=== PATIENT | male | born 1980 ===

== ENCOUNTER 2019-03-07 13:48 | Emergency (ER) | payer OTHER ==
[2019-03-07 14:08] VITALS: BP 158/95; PULSE 88; RESP 18; TEMP 98.1; O2SAT 100
--- NOTE | 2019-03-07 15:25 | RAD ---
Date of service: 03/07/2019 PROCEDURE: Right Foot Radiographs. HISTORY: r/o fx COMPARISON: None. TECHNIQUE: 3 views obtained. FINDINGS: BONES: Bone alignment and mineralization are normal. There is no acute displaced fracture or bone destruction. The 4th metatarsal is short, an anatomic variant. JOINTS: Normal. SOFT TISSUES: Normal. OTHER FINDINGS: None. IMPRESSION: No acute displaced fracture or dislocation.
--- NOTE | 2019-03-07 19:03 | C.PDOC ---
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 Patient reports that he was wearing construction boots at the time. He notes that he is able to ambulate with limp. Denies having weakness and numbness. Chief Complaint (Nursing): Trauma History Per: Patient History/Exam Limitations: no limitations Onset/Duration Of Symptoms: Hrs Current Symptoms Are (Timing): Still Present Severity: Moderate Past Medical History Reviewed: Historical Data, Nursing Documentation, Vital Signs Vital Signs: Last Vital Signs Temp 98.1 F 03/07/19 14:05 Pulse 88 03/07/19 14:05 Resp 18 03/07/19 14:05 BP 158/95 H 03/07/19 14:05 Pulse Ox 100 03/07/19 14:05 - Medical History PMH: No Chronic Diseases Surgical History: No Surg Hx Family History: States: No Known Family Hx - Social History Hx Alcohol Use: Yes Hx Substance Use: No - Immunization History Hx Tetanus Toxoid Vaccination: Yes Hx Influenza Vaccination: No Hx Pneumococcal Vaccination: No Review Of Systems Musculoskeletal: Positive for: Foot Pain (right foot pain) Neurological: Negative for: Weakness, Numbness Physical Exam - Physical Exam Appears: Non-toxic, No Acute Distress Skin: Normal Color, Warm, Dry Head: Atraumatic, Normacephalic Eye(s): bilateral: Normal Inspection Nose: Normal Oral Mucosa: Moist Neck: Supple Chest: Symmetrical Extremity: Normal ROM, Tenderness (tenderness to dorsal aspect of right foot), Capillary Refill (< 2 seconds), Swelling (swelling to dorsal aspect of right foot) Pulses: Left Dorsalis Pedis: Normal, Right Dorsalis Pedis: Normal Neurological/Psych: Oriented x3, Normal Speech, Normal Motor, Normal Sensation ED Course And Treatment O2 Sat by Pulse Oximetry: 100 (RA) Pulse Ox Interpretation: Normal - Other Rad X-Ray-Foot X-Ray: Viewed By Me, Read By Radiologist Interpretation: Date of service: 03/07/2019. PROCEDURE: Right Foot Radiographs. HISTORY: r/o fx. COMPARISON: None. TECHNIQUE: 3 views obtained. FINDINGS: BONES: Bone alignment and mineralization are normal. There is no acute displaced fracture or bone destruction. The 4th metatarsal is short, an anatomic variant. JOINTS: Normal. SOFT TISSUES: Normal. OTHER FINDINGS: None. IMPRESSION: No acute displaced fracture or dislocation. Medical Decision Making Medical Decision Making: Plan: --Tylenol PO --X-Ray-Right Foot Disposition - Disposition Referrals: Hilton Camacho [facility], [Non-Staff] - Disposition: HOME/ ROUTINE Disposition Time: 15:15 Condition: GOOD Additional Instructions: GAVIN MENEZES, thank you for letting us take care of you today. The emergency medical care you received today was directed at your acute symptoms. If you were prescribed any medication, please fill it and take as directed. It may take several days for your symptoms to resolve. Return to the Emergency Department if your symptoms worsen, do not improve, or if you have any other problems. Please contact your doctor or call one of the physicians/clinics you have been referred to that are listed on the Patient Visit Information form that is included in your discharge packet. Bring any paperwork you were given at discharge with you along with any medications you are taking to your follow up visit. Our treatment cannot replace ongoing medical care by a primary care provider outside of the emergency department. Thank you for allowing the [facility] team to be part of your care today. Follow up with your primary care doctor this week for re-evaluation and further management. GAVIN MENEZES, sarah por dejarnos cuidar de usted radha. La atencin mdica de emergencia que recibi hoy se dirigi a valentin sntomas agudos. Si le recetaron algn medicamento, llnelo y tmelo segn las indicaciones. Los sntomas pueden tardar varios freire en resolverse. Regrese al Departamento de Emergencias si valentin sntomas empeoran, no mejoran o si tiene otros problemas. Comunquese con vitale mdico o llame a deb de los mdicos / clnicas a los que wahl sido referido que figuran en el formulario de Informacin de visita al paciente que se incluye en vitale paquete de ita. Lleve todos los documentos que recibi al momento del ita junto con los medicamentos que est tomando para vitale visita de seguimiento. Nuestro tratamiento no puede reemplazar la atencin mdica continua por parte de un proveedor de atencin primaria fuera del departamento de emergencias. Sarah por permitir que el equipo de [facility] [employer] sea parte de vitale atencin hoy. Long un seguimiento con vitale mdico de atencin primaria esta semana para bhavya reevaluacin y manejo adicional. Prescriptions: Ibuprofen [Motrin] 600 mg PO Q6 PRN #20 tab PRN Reason: Pain, Moderate (4-7) Instructions: Foot Sprain (DC) Forms: [employer] (Cuban), Work Excuse Print Language: GEORGIAN - Clinical Impression Clinical Impression: Foot contusion - Scribe Statement The provider has reviewed the documentation as recorded by the Scribe Katelynn Hu Provider Attestation: All medical record entries made by the Scribe were at my direction and personally dictated by me. I have reviewed the chart and agree that the record accurately reflects my personal performance of the history, physical exam, medical decision making, and the department course for this patient. I have also personally directed, reviewed, and agree with the discharge instructions and disposition.
== END 2019-03-07 15:43 | disposition home or self-care (01) ==
LOC: C.ER 13:48
DX: S90.31XA Contusion of right foot, initial encounter (principal); W22.8XXA Striking against or struck by other objects, initial encounter; Y93.H3 Activity, building and construction; Y92.69 Other specified industrial and construction area as the place of occurrence of the external cause; Y99.0 Civilian activity done for income or pay